=== PATIENT | female | born 1990 | race Hispanic/Latino ===

== ENCOUNTER 2017-11-01 21:42 | Emergency (ER) | payer MEDICAID, OTHER ==
[~2017-11-01 21:42] MED LIST: CEFU500T67 PO; IBUP-2070 PO
[2017-11-01 22:41] LABS: BASOPHILS % (AUTO) 0.5 % (0.0-5.0); EOSINOPHILS % (AUTO) 0.4 % (0.0-8.0); HEMATOCRIT 39.2 % (36-48); LYMPHOCYTES % (AUTO) 12.6 % (21.0-51.0); MEAN CORPUSCULAR HEMOGLOBIN 29.5 pg (27.0-33.0); MEAN CORPUSCULAR HGB CONC 33.5 g/dL (32.0-36.0); MONOCYTES % (AUTO) 5.8 % (3.0-13.0); NEUTROPHILS % (AUTO) 80.7 % (40.0-77.0); PLATELET COUNT (AUTO) 326 K/uL (130-400); RED BLOOD CELL COUNT(AUTO) 4.46 MIL/uL (4.00-5.50); RED CELL DISTRIBUTION WIDTH 14.7 % (11.0-15.5); WHITE BLOOD COUNT (AUTO) 14.5 K/uL (4.8-10.8)
[2017-11-01 22:56] LABS: CREATININE 0.9 mg/dL (0.5-1.5); POTASSIUM 3.6 mmol/L (3.5-5.1)
[2017-11-01 22:58] LABS: APPEARANCE,URINE Cloudy (CLEAR); BILIRUBIN,URINE Negative (NEGATIVE); COLOR,URINE Yellow (YELLOW); GLUCOSE, URINE (UA) Negative (NEGATIVE); KETONES,URINE Negative (NEGATIVE); LEUKOCYTE ESTERASE ,URINE Large (NEGATIVE); NITRATE,URINE Negative (NEGATIVE); OCCULT BLOOD,URINE Small (NEGATIVE); PROTEIN,URINE Negative (NEGATIVE)
[2017-11-01 23:22] LABS: BACTERIA,URINE Moderate /HPF (None Seen); MUCUS,URINE Rare LPF (None Seen); RBC,URINE 0-1 /HPF (0-1); SQUAMOUS EPITHELIAL CELL,UR Few /LPF (0-2)
== END 2017-11-01 23:56 | disposition home or self-care (01) ==
LOC: EDH 21:42
DX: O02.1 Missed abortion (principal); O03.88 Urinary tract infection following complete or unspecified spontaneous abortion; Z3A.10 10 weeks gestation of pregnancy
CPT/HCPCS: 36415; 76817; 80048; 81001; 84702; 85025; 86900; 86901

== ENCOUNTER 2017-11-04 17:05 | Emergency (ER) | payer MEDICAID | END 2017-11-04 17:56 | disposition home or self-care (01) | LOC: EDH 17:05 | DX: O20.0 Threatened abortion (principal); Z3A.11 11 weeks gestation of pregnancy | CPT/HCPCS: 99281 ==

== ENCOUNTER 2017-12-26 01:53 | Emergency (ER) | payer MEDICAID ==
[2017-12-26] MEDS ORDERED: SODIUM CHLORIDE 0.9% 1000ML 2,000 ML IV ONE (02:16)
[2017-12-26] MEDS ORDERED: CEFTRIAXONE SODIUM 1 GM ONE (02:37)
[2017-12-26 02:40] LABS: BASOPHILS % (AUTO) 0.4 % (0.0-5.0); EOSINOPHILS % (AUTO) 0.4 % (0.0-8.0); HEMATOCRIT 34.5 % (36-48); LYMPHOCYTES % (AUTO) 15.1 % (21.0-51.0); MEAN CORPUSCULAR HEMOGLOBIN 29.6 pg (27.0-33.0); MEAN CORPUSCULAR HGB CONC 33.2 g/dL (32.0-36.0); MEAN CORPUSCULAR VOLUME 88.9 fL (79-99); MONOCYTES % (AUTO) 10.6 % (3.0-13.0); NEUTROPHILS % (AUTO) 73.5 % (40.0-77.0); PLATELET COUNT (AUTO) 300 K/uL (130-400); RED BLOOD CELL COUNT(AUTO) 3.88 MIL/uL (4.00-5.50); RED CELL DISTRIBUTION WIDTH 13.6 % (11.0-15.5); WHITE BLOOD COUNT (AUTO) 13.8 K/uL (4.8-10.8)
[2017-12-26 02:42] LABS: APPEARANCE,URINE Clear (CLEAR); BILIRUBIN,URINE Negative (NEGATIVE); COLOR,URINE Yellow (YELLOW); GLUCOSE, URINE (UA) Negative (NEGATIVE); KETONES,URINE Negative (NEGATIVE); LEUKOCYTE ESTERASE ,URINE Large (NEGATIVE); NITRATE,URINE Negative (NEGATIVE); OCCULT BLOOD,URINE Small (NEGATIVE); PROTEIN,URINE Negative (NEGATIVE); UROBILINOGEN,URINE 0.2 mg/dL (0.2-1.0)
[2017-12-26 02:46] LABS: CARBON DIOXIDE 28 mmol/L (21-32); CHLORIDE 101 mmol/L (101-111); CREATININE 0.9 mg/dL (0.5-1.5); GLOMERULAR FILTR. RATE CALC 80 mL/min (>60); GLUCOSE,RANDOM 129 mg/dL (70-105); POTASSIUM 3.4 mmol/L (3.5-5.1); SODIUM SERUM 140 mmol/L (136-145); UREA NITROGEN, BLOOD 9 mg/dL (7-18)
[2017-12-26 02:47] LABS: HCG,QUAL RESULT NEGATIVE (NEGATIVE)
[2017-12-26 02:49] LABS: INR 0.94 (0.85-1.15); PROTHROMBIN TIME 9.9 SEC (9.6-11.6)
[2017-12-26 03:02] LABS: BACTERIA,URINE Few /HPF (None Seen); MUCUS,URINE Few LPF (None Seen); SQUAMOUS EPITHELIAL CELL,UR Few /HPF (0-2)
[2017-12-26 03:09] LABS: ALANINE AMINOTRANSFERASE 22 U/L (12-78); ALBUMIN 4.2 g/dL (3.5-5.0); ASPARTATE AMINOTRANSFERASE 18 U/L (10-37); BILIRUBIN,TOTAL 0.5 mg/dL (0.2-1.0); CREATINE KINASE MB < 0.5 ng/mL (0.5-3.6); CREATINE KINASE, TOTAL 65 U/L (21-232); MYOGLOBIN 33 ng/mL (10-92); TOTAL PROTEIN, SERUM 8.8 g/dL (6.0-8.3); TROPONIN I < 0.04 ng/mL (0.00-0.06)
[2017-12-26] MEDS ORDERED: SODIUM CHLORIDE 0.9% 1000ML 1,000 ML IV ONE (05:11)
[2017-12-26] MEDS ORDERED: IBUPROFEN 600 MG TABLET ONE (05:11)
== END 2017-12-26 06:21 | disposition home or self-care (01) ==
LOC: EDH 01:53
DX: N10 Acute pyelonephritis (principal); N20.0 Calculus of kidney; R79.1 Abnormal coagulation profile; Z87.442 Personal history of urinary calculi
CPT/HCPCS: 36415; 71045; 74176; 80053; 81001; 81025; 82550; 82553; 83605 ×2; 83874; 84484; 85025; 85610; 85730; 87040 ×2; 87088; 87186; 93005; 96361; 96374; 99285; J0696; J7030 ×2

== ENCOUNTER 2018-09-06 09:37 | Emergency (ER) | payer MEDICAID ==
[2018-09-06 10:13] LABS: APPEARANCE,URINE Clear (CLEAR); BILIRUBIN,URINE Negative (NEGATIVE); COLOR,URINE Yellow (YELLOW); GLUCOSE, URINE (UA) Negative (NEGATIVE); KETONES,URINE Negative (NEGATIVE); LEUKOCYTE ESTERASE ,URINE Moderate (NEGATIVE); NITRATE,URINE Negative (NEGATIVE); OCCULT BLOOD,URINE Moderate (NEGATIVE); PROTEIN,URINE Negative (NEGATIVE); UROBILINOGEN,URINE 0.2 mg/dL (0.2-1.0)
[2018-09-06 10:27] LABS: BACTERIA,URINE Rare /HPF (None Seen); RBC,URINE 0-1 /HPF (0-1); SQUAMOUS EPITHELIAL CELL,UR Rare /HPF (0-2)
== END 2018-09-06 10:35 | disposition home or self-care (01) ==
LOC: EDH 09:37
DX: R07.89 Other chest pain (principal); F41.1 Generalized anxiety disorder; Z87.442 Personal history of urinary calculi
CPT/HCPCS: 81001; 81025; 87088

== ENCOUNTER 2018-09-28 07:00 | Day surgery (SDC) | payer MEDICAID ==
[2018-09-25 10:20] LABS: BASOPHILS % (AUTO) 0.5 % (0.0-5.0); HEMATOCRIT 37.8 % (36-48); LYMPHOCYTES % (AUTO) 39.4 % (21.0-51.0); MEAN CORPUSCULAR HEMOGLOBIN 30.6 pg (27.0-33.0); MEAN CORPUSCULAR HGB CONC 33.6 g/dL (32.0-36.0); MONOCYTES % (AUTO) 6.7 % (3.0-13.0); NEUTROPHILS % (AUTO) 51.4 % (40.0-77.0); PLATELET COUNT (AUTO) 312 K/uL (130-400); RED BLOOD CELL COUNT(AUTO) 4.16 MIL/uL (4.00-5.50); RED CELL DISTRIBUTION WIDTH 14.5 % (11.0-15.5); WHITE BLOOD COUNT (AUTO) 9.5 K/uL (4.8-10.8)
[2018-09-25 10:30] VITALS: BP 125/73
[2018-09-25 10:44] LABS: CREATININE 0.8 mg/dL (0.5-1.5); POTASSIUM 3.9 mmol/L (3.5-5.1)
[2018-09-25 11:03] LABS: APPEARANCE,URINE Clear (CLEAR); BILIRUBIN,URINE Negative (NEGATIVE); COLOR,URINE Yellow (YELLOW); GLUCOSE, URINE (UA) Negative (NEGATIVE); KETONES,URINE Negative (NEGATIVE); LEUKOCYTE ESTERASE ,URINE Moderate (NEGATIVE); NITRATE,URINE Negative (NEGATIVE); OCCULT BLOOD,URINE Trace (NEGATIVE); PH,URINE 6.5 (5.0-8.0); PROTEIN,URINE Negative (NEGATIVE); UROBILINOGEN,URINE 0.2 mg/dL (0.2-1.0)
[2018-09-25 11:12] LABS: BACTERIA,URINE Rare /HPF (None Seen); RBC,URINE 0-1 /HPF (0-1); SQUAMOUS EPITHELIAL CELL,UR Rare /HPF (0-2)
[2018-09-28] VITALS (15 sets, daily range): BP systolic 110–141; BP diastolic 68–91
[~2018-09-28] VITALS: Ht 160 cm; Wt 63.1 kg
[~2018-09-28 07:00] MED LIST changes: +ACET-2247 PO; +BUSP7.5T7 PO; -CEFU500T67 PO; +PREN-154 PO; +SULF1TAB41 PO
[2018-09-28] MEDS ORDERED: LACTATED RINGERS 1000ML 1,000 ML IV ONE (07:47)
[2018-09-28] MEDS ORDERED: IOHEXOL-350 50ML VIAL IV ONE (07:53)
[2018-09-28] MEDS: MEROPENEM 1 GM VIAL IVP SCH ×2 (08:00→08:30)
[2018-09-28] MEDS ORDERED: FENTANYL CITRATE PF 50 MCG/1 ML 2ML VIAL ONE ×2 (08:05→09:30)
[2018-09-28] MEDS ORDERED: PROPOFOL 10 MG/ML 20ML VIAL IV ONE (08:05)
[2018-09-28] MEDS ORDERED: LIDOCAINE PF 2% 5ML ABBOJECT ONE (08:05)
[2018-09-28] MEDS ORDERED: MIDAZOLAM HCL 1 MG/ML 2ML VIAL ONE (08:28)
[2018-09-28] MEDS ORDERED: PHENYLEPHRINE HCL 10 MG/ML 1ML VIAL IV ONE (08:48)
[2018-09-28] MEDS ORDERED: SODIUM CHLORIDE 0.9% 10 ML VIAL ONE (08:48)
[2018-09-28] MEDS ORDERED: ONDANSETRON HCL 4 MG/2 ML VIAL ONE ×2 (10:02→11:44)
[2018-09-28] MEDS ORDERED: ACETAMINOPHEN 325 MG TAB ONE (12:25)
== END 2018-09-28 12:50 | disposition home or self-care (01) ==
LOC: DAH 07:00
PROVIDERS: ATTEND Urology
DX: N20.1 Calculus of ureter (principal); Z98.890 Other specified postprocedural states; Z79.899 Other long term (current) drug therapy; F41.9 Anxiety disorder, unspecified; K21.9 Gastro-esophageal reflux disease without esophagitis; N39.0 Urinary tract infection, site not specified
CPT/HCPCS: 36415; 52356; 74420; 80048; 81001; 84702; 85025; 87088; A4218; A4344; A4354; A4358; A4600; A4649 ×2; A6207; C1758; C1769; C1894; C2617; J2001; J2185; J2250; J2370; J2405 ×2; J2704; J3010 ×2; J7120 ×2; Q9967

== ENCOUNTER 2019-01-07 12:59 | Emergency (ER) | payer MEDICAID ==
[2019-01-07 13:22] LABS: APPEARANCE,URINE Clear (CLEAR); BILIRUBIN,URINE Negative (NEGATIVE); COLOR,URINE Yellow (YELLOW); GLUCOSE, URINE (UA) Negative (NEGATIVE); KETONES,URINE Negative (NEGATIVE); LEUKOCYTE ESTERASE ,URINE Large (NEGATIVE); NITRATE,URINE Positive (NEGATIVE); OCCULT BLOOD,URINE Trace (NEGATIVE); PROTEIN,URINE Negative (NEGATIVE); UROBILINOGEN,URINE 0.2 mg/dL (0.2-1.0)
[2019-01-07 13:37] LABS: HCG,QUAL RESULT POSITIVE (NEGATIVE)
[2019-01-07 13:50] LABS: BACTERIA,URINE Many /HPF (None Seen)
[2019-01-07 13:52] LABS: RBC,URINE 0-1 /HPF (0-1)
[2019-01-07] MEDS ORDERED: NITROFURANTOIN MONOHYD/M-CRYST 100 MG CAPSULE PO ONE (14:30)
== END 2019-01-07 14:45 | disposition home or self-care (01) ==
LOC: EDH 12:59
DX: O23.31 Infections of other parts of urinary tract in pregnancy, first trimester (principal); F41.9 Anxiety disorder, unspecified; Z98.890 Other specified postprocedural states; Z87.442 Personal history of urinary calculi; Z3A.01 Less than 8 weeks gestation of pregnancy
CPT/HCPCS: 81001; 81025; 87077; 87088; 87186

== ENCOUNTER → 2020-07-25 | Outpatient (CLI) | payer MEDICAID | END | disposition home or self-care (01) | LOC: RAH 13:25 | PROVIDERS: ATTEND Family Medicine | DX: N20.0 Calculus of kidney (principal) | CPT/HCPCS: 74176 ==

== ENCOUNTER 2021-03-24 22:36 | Emergency (ER) | payer MEDICAID ==
[~2021-03-24] VITALS: Ht 160 cm; Wt 68.0 kg
[~2021-03-24 22:36] MED LIST changes: +0.9%NACL 1000ML 1,000 ML IV ONE
[2021-03-24 22:43] VITALS: BP 126/84
[2021-03-24] MEDS ORDERED: KETOROLAC 30MG VIAL (30MG/ML) IV ONE (23:15)
[2021-03-24] MEDS ORDERED: TAMSULOSIN HCL 0.4 MG CAP.ER.24H PO SCH (23:15)
[2021-03-24] MEDS ORDERED: 0.9%NACL 1000ML 1,000 ML IV ONE (23:15)
[2021-03-24 23:26] LABS: BASOPHILS % (AUTO) 0.3 % (0.0-5.0); EOSINOPHILS % (AUTO) 0.3 % (0.0-8.0); HEMATOCRIT 36.9 % (36-48); LYMPHOCYTES % (AUTO) 19.2 % (21.0-51.0); MEAN CORPUSCULAR HEMOGLOBIN 29.8 pg (27.0-33.0); MEAN CORPUSCULAR HGB CONC 32.5 g/dL (32.0-36.0); MEAN CORPUSCULAR VOLUME 91.6 fL (79-99); MONOCYTES % (AUTO) 16.1 % (3.0-13.0); NEUTROPHILS % (AUTO) 63.7 % (40.0-77.0); PLATELET COUNT (AUTO) 284 K/uL (130-400); RED BLOOD CELL COUNT(AUTO) 4.03 MIL/uL (4.00-5.50); RED CELL DISTRIBUTION WIDTH 12.4 % (11.0-15.5); WHITE BLOOD COUNT (AUTO) 14.3 K/uL (4.8-10.8)
[2021-03-24 23:28] LABS: APPEARANCE,URINE Clear (CLEAR); BILIRUBIN,URINE Negative (NEGATIVE); COLOR,URINE Yellow (YELLOW); GLUCOSE, URINE (UA) Negative (NEGATIVE); KETONES,URINE Negative (NEGATIVE); LEUKOCYTE ESTERASE ,URINE Moderate (NEGATIVE); NITRATE,URINE Negative (NEGATIVE); OCCULT BLOOD,URINE Small (NEGATIVE); PROTEIN,URINE Negative (NEGATIVE)
[2021-03-24 23:35] LABS: HCG,QUAL RESULT NEGATIVE (NEGATIVE)
[2021-03-24 23:39] LABS: CREATININE 1.1 mg/dL (0.5-1.5); POTASSIUM 3.6 mmol/L (3.5-5.1)
[2021-03-24 23:45] LABS: ALBUMIN 3.9 g/dL (3.5-5.0); BILIRUBIN,TOTAL 0.6 mg/dL (0.2-1.0); TOTAL PROTEIN, SERUM 8.7 g/dL (6.0-8.3)
[2021-03-24 23:47] LABS: BACTERIA,URINE Rare /HPF (None Seen); RBC,URINE 0-1 /HPF (0-1)
[2021-03-24 23:57] LABS: CRP QUANTITATIVE 174.4 mg/L (0.00-9.0)
[2021-03-25] MEDS ORDERED: CEFTRIAXONE 2GM VIAL IVP SCH (00:30)
[2021-03-25 00:47] VITALS: BP 133/73
[2021-03-25] MEDS ORDERED: ONDA4TAB10 PO (00:48)
[2021-03-25] MEDS ORDERED: CEPH500B PO (00:48)
[2021-03-25] MEDS ORDERED: MELO7.5T12 PO (00:48)
[2021-03-25] MEDS ORDERED: METO-296 PO (00:48)
[2021-03-25] MEDS ORDERED: ONDANSETRON 4MG INJ IVP ONE (01:00)
[2021-03-25] MEDS ORDERED: ACETAMINOPHEN 500 MG TABLET PO ONE (01:00)
[2021-03-25] MEDS ORDERED: KETOROLAC 30MG VIAL (30MG/ML) ONE (01:13)
== END 2021-03-25 01:29 | disposition home or self-care (01) ==
LOC: EDH 22:36
DX: N12 Tubulo-interstitial nephritis, not specified as acute or chronic (principal); E86.0 Dehydration; K21.9 Gastro-esophageal reflux disease without esophagitis; Z79.899 Other long term (current) drug therapy
CPT/HCPCS: 36415 ×2; 74176; 80053; 81001; 81025; 83605; 85025; 86140; 87040 ×2; 87077; 87088; 87186; 96361; 96374; 96375; 99284; J0696; J1885; J2405; J7030

== ENCOUNTER 2021-07-14 00:45 | Emergency (ER) | payer MEDICAID ==
[~2021-07-14] VITALS: Ht 160 cm; Wt 69.4 kg
[~2021-07-14 00:45] MED LIST changes: -0.9%NACL 1000ML 1,000 ML IV ONE; +CEPH500B PO; +MELO7.5T12 PO; +METO-296 PO; +ONDA4TAB10 PO
[2021-07-14 01:52] LABS: APPEARANCE,URINE Cloudy (CLEAR); BILIRUBIN,URINE Negative (NEGATIVE); COLOR,URINE Yellow (YELLOW); GLUCOSE, URINE (UA) Negative (NEGATIVE); KETONES,URINE Negative (NEGATIVE); LEUKOCYTE ESTERASE ,URINE Large (NEGATIVE); NITRATE,URINE Negative (NEGATIVE); OCCULT BLOOD,URINE Large (NEGATIVE); PH,URINE 6.5 (5.0-8.0); PROTEIN,URINE Trace mg/dL (NEGATIVE)
[2021-07-14 01:59] LABS: BACTERIA,URINE Rare /HPF (None Seen); SQUAMOUS EPITHELIAL CELL,UR Rare /HPF (0-2)
[2021-07-14 02:00] LABS: HCG,QUAL RESULT NEGATIVE (NEGATIVE)
[2021-07-14] MEDS ORDERED: ZOSYN 3.375GM+NS 50ML 50 ML IV ONE (02:30)
[2021-07-14 02:52] LABS: BASOPHILS % (AUTO) 0.4 % (0.0-5.0); EOSINOPHILS % (AUTO) 0.6 % (0.0-8.0); HEMATOCRIT 38.8 % (36-48); LYMPHOCYTES % (AUTO) 13.7 % (21.0-51.0); MEAN CORPUSCULAR HEMOGLOBIN 30.7 pg (27.0-33.0); MEAN CORPUSCULAR HGB CONC 33.2 g/dL (32.0-36.0); MEAN CORPUSCULAR VOLUME 92.4 fL (79-99); MONOCYTES % (AUTO) 7.9 % (3.0-13.0); PLATELET COUNT (AUTO) 295 K/uL (130-400); RED CELL DISTRIBUTION WIDTH 13.3 % (11.0-15.5); WHITE BLOOD COUNT (AUTO) 15.9 K/uL (4.8-10.8)
[2021-07-14 03:18] LABS: CREATININE 1.2 mg/dL (0.5-1.5); POTASSIUM 3.3 mmol/L (3.5-5.1)
[2021-07-14] MEDS ORDERED: NITR100C4 PO (05:42)
[2021-07-14 05:56] VITALS: BP 123/84
== END 2021-07-14 05:57 | disposition home or self-care (01) ==
LOC: EDH 00:45
DX: N39.0 Urinary tract infection, site not specified (principal); N20.0 Calculus of kidney; B96.89 Other specified bacterial agents as the cause of diseases classified elsewhere; F41.9 Anxiety disorder, unspecified; Z98.890 Other specified postprocedural states; Z79.899 Other long term (current) drug therapy
CPT/HCPCS: 36415; 76770; 80048; 81001; 81025; 85025; 87040 ×2; 87077; 87088; 87186; 96365; 99284; J2543

== ENCOUNTER 2021-08-02 14:31 | Inpatient (IN) | payer MEDICAID ==
[~2021-08-02] VITALS: Ht 160 cm; Wt 66.3 kg
[~2021-08-02 14:31] MED LIST changes: +NITR100C4 PO
[2021-08-02] MEDS ORDERED: 0.9%NACL 1000ML 1,572 ML IV ONE (15:00)
[2021-08-02] MEDS ORDERED: ACETAMINOPHEN 500 MG TABLET ONE (15:08)
[2021-08-02] MEDS ORDERED: ONDANSETRON 4MG INJ ONE (15:08)
[2021-08-02 15:12] LABS: BASOPHILS % (AUTO) 0.2 % (0.0-5.0); EOSINOPHILS % (AUTO) 0.1 % (0.0-8.0); HEMATOCRIT 38.7 % (36-48); LYMPHOCYTES % (AUTO) 9.1 % (21.0-51.0); MEAN CORPUSCULAR HEMOGLOBIN 30.4 pg (27.0-33.0); MEAN CORPUSCULAR HGB CONC 33.1 g/dL (32.0-36.0); MEAN CORPUSCULAR VOLUME 91.9 fL (79-99); MONOCYTES % (AUTO) 9.1 % (3.0-13.0); PLATELET COUNT (AUTO) 265 K/uL (130-400); RED BLOOD CELL COUNT(AUTO) 4.21 MIL/uL (4.00-5.50); RED CELL DISTRIBUTION WIDTH 13.2 % (11.0-15.5); WHITE BLOOD COUNT (AUTO) 19.4 K/uL (4.8-10.8)
[2021-08-02 15:23] LABS: INR 1.06 (0.85-1.15); PROTHROMBIN TIME 11.5 SEC (9.6-11.6)
[2021-08-02 15:24] LABS: PARTIAL THROMBOPLASTIN TIME 24.8 SEC (26.3-35.5)
[2021-08-02 15:28] LABS: CREATININE 1.3 mg/dL (0.5-1.5); POTASSIUM 3.6 mmol/L (3.5-5.1)
[2021-08-02 15:32] LABS: APPEARANCE,URINE CLOUDY (CLEAR); BILIRUBIN,URINE NEGATIVE (NEGATIVE); COLOR,URINE YELLOW (YELLOW); GLUCOSE, URINE (UA) NEGATIVE (NEGATIVE); KETONES,URINE NEGATIVE (NEGATIVE); LEUKOCYTE ESTERASE ,URINE LARGE (NEGATIVE); NITRATE,URINE POSITIVE (NEGATIVE); OCCULT BLOOD,URINE MODERATE (NEGATIVE); PROTEIN,URINE 100 mg/dL (NEGATIVE)
[2021-08-02 15:33] LABS: ALBUMIN 4.3 g/dL (3.5-5.0); TOTAL PROTEIN, SERUM 8.9 g/dL (6.0-8.3)
[2021-08-02 15:45] LABS: WBC,URINE 26-50 /HPF (0-1)
[2021-08-02 15:46] LABS: BACTERIA,URINE Few /HPF (None Seen); SQUAMOUS EPITHELIAL CELL,UR Few /HPF (0-2)
[2021-08-02 15:48] LABS: MUCUS,URINE Rare LPF (None Seen)
[2021-08-02] MEDS ORDERED: ZOSYN 3.375GM +NS 50ML IV ONE (16:00)
[2021-08-02] MEDS ORDERED: 0.9%NACL 50ML 50 ML IV ONE (16:00)
[2021-08-02] MEDS ORDERED: ONDANSETRON 4MG INJ IVP ONE (16:00)
[2021-08-02] MEDS ORDERED: ACETAMINOPHEN 500 MG TABLET PO ONE (16:00)
[2021-08-02] MEDS ORDERED: MORPHINE 2 MG SYG IV PRN (17:30)
[2021-08-02 17:55] LABS: HEMOGLOBIN A1C 5.9 % (4.0-6.0)
[2021-08-02 18:35] VITALS: BP 119/86
[2021-08-02] MEDS: 0.9%NACL 1000ML 1,000 ML IV SCH (19:00)
[2021-08-02] MEDS: ACETAMINOPHEN 325 MG TAB PO PRN ×2 (19:15→21:18)
[2021-08-02] MEDS: ZOSYN 3.375GM+NS 50ML 50 ML IV SCH (21:16)
[2021-08-02] MEDS: 0.9%NACL 50ML 50 ML IV SCH (21:16)
[2021-08-02] MEDS: FAMOTIDINE 20MG VIAL IV SCH (21:16)
[2021-08-02] MEDS: ONDANSETRON 4MG INJ IV PRN (21:39)
[2021-08-02 22:27] LABS: AMPHET/METH SCREEN,URINE NEGATIVE (NEGATIVE); BARBITURATE SCREEN, URINE NEGATIVE (NEGATIVE); BENZODIAZEPINES SCREEN,URINE NEGATIVE (NEGATIVE); CANNABINOID SCREEN,URINE NEGATIVE (NEGATIVE); COCAINE SCREEN,URINE NEGATIVE (NEGATIVE); OPIATE SCREEN,URINE NEGATIVE (NEGATIVE); PHENCYCLIDINE SCREEN,URINE NEGATIVE (NEGATIVE)
[2021-08-02 23:59] VITALS: BP 104/65
[2021-08-03] MEDS: 0.9%NACL 1000ML 1,000 ML IV SCH ×3 (01:14→18:06)
[2021-08-03] MEDS ORDERED: IBUPROFEN 800 MG TAB PO ONE (01:30)
[2021-08-03] MEDS ORDERED: ALPRAZOLAM 0.25 MG TABLET PO ONE (01:30)
[2021-08-03 03:49] VITALS: BP 102/67
[2021-08-03 03:50] LABS: BASOPHILS % (AUTO) 0.2 % (0.0-5.0); EOSINOPHILS % (AUTO) 0.7 % (0.0-8.0); HEMATOCRIT 32.7 % (36-48); MEAN CORPUSCULAR HGB CONC 33.3 g/dL (32.0-36.0); MEAN CORPUSCULAR VOLUME 92.9 fL (79-99); MONOCYTES % (AUTO) 10.9 % (3.0-13.0); NEUTROPHILS % (AUTO) 83.1 % (40.0-77.0); PLATELET COUNT (AUTO) 192 K/uL (130-400); RED BLOOD CELL COUNT(AUTO) 3.52 MIL/uL (4.00-5.50); RED CELL DISTRIBUTION WIDTH 13.3 % (11.0-15.5); WHITE BLOOD COUNT (AUTO) 19.7 K/uL (4.8-10.8)
[2021-08-03] MEDS: 0.9%NACL 50ML 50 ML IV SCH ×3 (05:06→20:59)
[2021-08-03] MEDS: ZOSYN 3.375GM+NS 50ML 50 ML IV SCH ×2 (05:06→12:24)
[2021-08-03] MEDS: FAMOTIDINE 20MG VIAL IV SCH ×2 (08:02→21:12)
[2021-08-03 08:31] VITALS: BP 103/68
[2021-08-03] MEDS: ONDANSETRON 4MG INJ IV PRN ×2 (11:06→21:12)
[2021-08-03] MEDS: ACETAMINOPHEN 325 MG TAB PO PRN ×3 (11:06→21:13)
[2021-08-03 12:00] VITALS: BP 103/68
[2021-08-03] MEDS: MEROPENEM 1 GM VIAL IVP SCH ×2 (14:12→22:07)
[2021-08-03 17:15] VITALS: BP 116/82
[2021-08-03 19:34] VITALS: BP 103/69
[2021-08-03 23:37] VITALS: BP 101/65
[2021-08-04] MEDS: 0.9%NACL 1000ML 1,000 ML IV SCH ×3 (02:31→16:35)
[2021-08-04] MEDS: ACETAMINOPHEN 325 MG TAB PO PRN ×3 (02:57→21:59)
[2021-08-04 03:33] VITALS: BP 112/74
[2021-08-04 03:38] LABS: BASOPHILS % (AUTO) 0.3 % (0.0-5.0); EOSINOPHILS % (AUTO) 0.6 % (0.0-8.0); LYMPHOCYTES % (AUTO) 13.6 % (21.0-51.0); MEAN CORPUSCULAR HEMOGLOBIN 30.4 pg (27.0-33.0); MEAN CORPUSCULAR HGB CONC 32.6 g/dL (32.0-36.0); MEAN CORPUSCULAR VOLUME 93.3 fL (79-99); MONOCYTES % (AUTO) 12.6 % (3.0-13.0); NEUTROPHILS % (AUTO) 71.9 % (40.0-77.0); PLATELET COUNT (AUTO) 113 K/uL (130-400); RED BLOOD CELL COUNT(AUTO) 3.75 MIL/uL (4.00-5.50); RED CELL DISTRIBUTION WIDTH 13.4 % (11.0-15.5)
[2021-08-04 03:50] LABS: CREATININE 1.1 mg/dL (0.5-1.5); POTASSIUM 3.6 mmol/L (3.5-5.1)
[2021-08-04] MEDS: 0.9%NACL 50ML 50 ML IV SCH ×3 (04:32→20:56)
[2021-08-04] MEDS: MEROPENEM 1 GM VIAL IVP SCH ×3 (06:14→21:48)
[2021-08-04 07:05] VITALS: BP 104/72
[2021-08-04] MEDS: FAMOTIDINE 20MG VIAL IV SCH ×2 (09:09→21:48)
[2021-08-04] MEDS: ONDANSETRON 4MG INJ IV PRN (09:11)
[2021-08-04 11:05] VITALS: BP 105/72
[2021-08-04 15:05] VITALS: BP 105/72
[2021-08-04 19:41] VITALS: BP 100/68
[2021-08-04 23:20] VITALS: BP 101/69
[2021-08-05] MEDS: 0.9%NACL 1000ML 1,000 ML IV SCH ×3 (01:30→23:00)
[2021-08-05 04:11] VITALS: BP 114/76
[2021-08-05] MEDS: 0.9%NACL 50ML 50 ML IV SCH ×2 (05:00→13:00)
[2021-08-05] MEDS: MEROPENEM 1 GM VIAL IVP SCH (06:08)
[2021-08-05 08:00] VITALS: BP 118/80
[2021-08-05 10:04] LABS: HEMATOCRIT 28.8 % (36-48); MEAN CORPUSCULAR HEMOGLOBIN 30.3 pg (27.0-33.0); MEAN CORPUSCULAR HGB CONC 33.3 g/dL (32.0-36.0); MEAN CORPUSCULAR VOLUME 90.9 fL (79-99); PLATELET COUNT (AUTO) 205 K/uL (130-400); RED BLOOD CELL COUNT(AUTO) 3.17 MIL/uL (4.00-5.50); RED CELL DISTRIBUTION WIDTH 13.5 % (11.0-15.5)
[2021-08-05 10:16] LABS: POTASSIUM 3.1 mmol/L (3.5-5.1)
[2021-08-05] MEDS: FAMOTIDINE 20MG VIAL IV SCH ×2 (10:21→20:56)
[2021-08-05 10:24] LABS: BASOPHILS % (AUTO) 0.2 % (0.0-5.0); EOSINOPHILS % (AUTO) 0.3 % (0.0-8.0); LYMPHOCYTES % (AUTO) 20.4 % (21.0-51.0); MONOCYTES % (AUTO) 9.9 % (3.0-13.0); NEUTROPHILS % (AUTO) 68.4 % (40.0-77.0)
[2021-08-05] MEDS: ONDANSETRON 4MG INJ IV PRN (10:29)
[2021-08-05 12:00] VITALS: BP 115/83
[2021-08-05] MEDS ORDERED: CEFTRIAXONE 1G VIAL IVP SCH (14:00)
[2021-08-05] MEDS: DOXYCYCLINE 100MG+NS 250ML IV SCH (15:27)
[2021-08-05] MEDS: 0.9% NACL 250ML IVPB SCH (15:27)
[2021-08-05 16:00] VITALS: BP 112/77
[2021-08-05 20:00] VITALS: BP 124/81
[2021-08-05] MEDS ORDERED: KCL 20 MEQ ERTAB PO PRN (20:00)
[2021-08-05] MEDS ORDERED: POTASSIUM CHLORIDE 20MEQ/100ML 100 ML IV PRN ×2 (20:00)
[2021-08-05] MEDS ORDERED: LIDOCAINE HCL-MPF 1% 2ML VIAL IV PRN ×2 (20:00)
[2021-08-05] MEDS ORDERED: DIPHENOXYLATE HCL/ATROPINE 2.5/0.025 MG TAB PO ONE (20:40)
[2021-08-05] MEDS: POTASSIUM CHLORIDE 10% ELIXIR 20 MEQ/15 ML UDCUP PO PRN (23:06)
[2021-08-06] VITALS: BP 117/78
[2021-08-06] MEDS: ONDANSETRON 4MG INJ IV PRN (01:18)
[2021-08-06] MEDS: POTASSIUM CHLORIDE 10% ELIXIR 20 MEQ/15 ML UDCUP PO PRN ×5 (01:19→16:38)
[2021-08-06] MEDS: 0.9% NACL 250ML IVPB SCH (01:19)
[2021-08-06] MEDS: DOXYCYCLINE 100MG+NS 250ML IV SCH (01:19)
[2021-08-06] MEDS: 0.9%NACL 1000ML 1,000 ML IV SCH (01:30)
[2021-08-06 04:05] LABS: CREATININE 0.9 mg/dL (0.5-1.5); POTASSIUM 3.2 mmol/L (3.5-5.1)
[2021-08-06 08:00] VITALS: BP 116/81
[2021-08-06] MEDS: FAMOTIDINE 20MG VIAL IV SCH (08:58)
[2021-08-06] MEDS ORDERED: LOPERAMIDE HCL 2 MG CAP PO PRN (11:00)
[2021-08-06 11:21] LABS: HEMATOCRIT 31.1 % (36-48); MEAN CORPUSCULAR HGB CONC 32.2 g/dL (32.0-36.0); MEAN CORPUSCULAR VOLUME 93.4 fL (79-99); RED BLOOD CELL COUNT(AUTO) 3.33 MIL/uL (4.00-5.50); RED CELL DISTRIBUTION WIDTH 13.8 % (11.0-15.5); WHITE BLOOD COUNT (AUTO) 9.7 K/uL (4.8-10.8)
[2021-08-06 12:00] VITALS: BP 120/64
[2021-08-06] MEDS ORDERED: KCL 20 MEQ ERTAB PO ONE (16:00)
[2021-08-06] MEDS ORDERED: DOXY20TA3 PO (16:08)
== END 2021-08-06 17:00 | disposition home or self-care (01) | DRG 720 ==
LOC: EDH 14:31 → EDHIP 14:32 → 3AH 18:35
PROVIDERS: ADMIT Hospitalist; ATTEND Hospitalist
DX: A41.50 Gram-negative sepsis, unspecified (principal); N17.9 Acute kidney failure, unspecified; N13.6 Pyonephrosis; E86.1 Hypovolemia; D64.9 Anemia, unspecified; B96.20 Unspecified Escherichia coli [E. coli] as the cause of diseases classified elsewhere; E87.6 Hypokalemia; Z20.822 Contact with and (suspected) exposure to COVID-19; F41.9 Anxiety disorder, unspecified; Z87.442 Personal history of urinary calculi; Z83.3 Family history of diabetes mellitus; Z82.5 Family history of asthma and other chronic lower respiratory diseases; Z82.49 Family history of ischemic heart disease and other diseases of the circulatory system; Z82.3 Family history of stroke; Z82.0 Family history of epilepsy and other diseases of the nervous system
CPT/HCPCS: 36415; 74176; 76770; 80048; 80053; 80305; 81001; 81025; 82550; 83036; 83605; 84145; 84484; 85025; 85027; 85610; 85730; 86140; 86757; 87040; 87077; 87088; 87186; 87635; 87804; 93005; C9803; G0378; J0696; J2185; J2405; J2543; J3490; J7030; J7050

== ENCOUNTER 2023-03-27 03:23 | Emergency (ER) | payer MEDICAID ==
[~2023-03-27] VITALS: Ht 160 cm; Wt 59.1 kg
[~2023-03-27 03:23] MED LIST changes: -CEPH500B PO; -IBUP-2070 PO; -MELO7.5T12 PO; -NITR100C4 PO; -SULF1TAB41 PO; +TAMS-1 PO
[2023-03-27 04:13] LABS: APPEARANCE,URINE CLOUDY (CLEAR); BILIRUBIN,URINE NEGATIVE (NEGATIVE); COLOR,URINE COLORLESS (YELLOW); GLUCOSE, URINE (UA) NEGATIVE (NEGATIVE); KETONES,URINE NEGATIVE (NEGATIVE); LEUKOCYTE ESTERASE ,URINE 500 Leu/uL (NEGATIVE); NITRATE,URINE 1+ (NEGATIVE); OCCULT BLOOD,URINE LARGE (NEGATIVE); PH,URINE 7.5 (5.0-8.0); PROTEIN,URINE 30 mg/dL (NEGATIVE); UROBILINOGEN,URINE 0.2 mg/dL (0.2-1.0)
[2023-03-27 05:02] LABS: BACTERIA,URINE MANY /HPF (None Seen); MUCUS,URINE RARE LPF (None Seen); SQUAMOUS EPITHELIAL CELL,UR FEW /HPF (0-2); WBC,URINE TNTC /HPF (0-1)
[2023-03-27] MEDS ORDERED: CEPH500T PO (05:48)
[2023-03-27 05:53] VITALS: BP 118/76
== END 2023-03-27 05:56 | disposition home or self-care (01) ==
LOC: EDH 03:23
DX: O23.41 Unspecified infection of urinary tract in pregnancy, first trimester (principal); N39.0 Urinary tract infection, site not specified; F41.9 Anxiety disorder, unspecified; Z3A.13 13 weeks gestation of pregnancy; Z79.899 Other long term (current) drug therapy; Z87.442 Personal history of urinary calculi
CPT/HCPCS: 76801; 81001; 87077; 87088; 87186

== ENCOUNTER 2024-10-02 21:33 | Emergency (ER) | payer MEDICAID ==
[~2024-10-02] VITALS: Ht 160 cm; Wt 69.9 kg
[~2024-10-02 21:33] MED LIST changes: +CEPH500T PO; -METO-296 PO; -ONDA4TAB10 PO; -TAMS-1 PO
[2024-10-02 22:02] LABS: BASOPHILS # (AUTO) 0.04 K/uL (0.00-0.20); BASOPHILS % (AUTO) 0.2 % (0.0-5.0); EOSINOPHILS # (AUTO) 0.05 K/uL (0.00-0.70); EOSINOPHILS % (AUTO) 0.3 % (0.0-8.0); HEMATOCRIT 38.8 % (36-48); IMMATURE GRANULOCYTE ABSOLUTE 0.07 K/uL (0-1); LYMPHOCYTES # (AUTO) 1.4 K/uL (1.0-4.8); LYMPHOCYTES % (AUTO) 7.3 % (21.0-51.0); MEAN CORPUSCULAR HEMOGLOBIN 29.9 pg (27.0-33.0); MEAN CORPUSCULAR VOLUME 90.7 fL (79-99); MONOCYTES # (AUTO) 0.4 K/uL (0.1-1.0); MONOCYTES % (AUTO) 2.1 % (3.0-13.0); NEUTROPHILS # (AUTO) 16.8 K/uL (1.8-7.7); NEUTROPHILS % (AUTO) 89.7 % (40.0-77.0); PLATELET COUNT (AUTO) 292 K/uL (130-400); RED BLOOD CELL COUNT(AUTO) 4.28 MIL/uL (4.00-5.50); RED CELL DISTRIBUTION WIDTH 12.6 % (11.0-15.5); WHITE BLOOD COUNT (AUTO) 18.7 K/uL (4.8-10.8)
[2024-10-02] MEDS: ondanSETRON 4MG INJ IVP ONE (22:03)
[2024-10-02 22:04] LABS: APPEARANCE,URINE CLOUDY (CLEAR); BILIRUBIN,URINE NEGATIVE (NEGATIVE); COLOR,URINE LIGHT-YELLOW (YELLOW); GLUCOSE, URINE (UA) NEGATIVE (NEGATIVE); KETONES,URINE NEGATIVE (NEGATIVE); LEUKOCYTE ESTERASE ,URINE 500 Leu/uL (NEGATIVE); NITRATE,URINE 1+ (NEGATIVE); OCCULT BLOOD,URINE LARGE (NEGATIVE); PROTEIN,URINE 200 mg/dL (NEGATIVE); UROBILINOGEN,URINE 0.2 mg/dL (0.2-1.0)
[2024-10-02] MEDS: ketOROlac 30MG VIAL (30MG/ML) IVP ONE (22:04)
[2024-10-02 22:05] LABS: ADD UA MICROSCOPIC YES
[2024-10-02 22:09] LABS: BACTERIA,URINE RARE /HPF (None Seen); MUCUS,URINE RARE LPF (None Seen); RBC,URINE TNTC /HPF (0-1); SQUAMOUS EPITHELIAL CELL,UR RARE /HPF (0-2); WBC,URINE TNTC /HPF (0-1); YEAST,URINE BUDDING RARE /HPF (None Seen)
[2024-10-02 22:42] LABS: CREATININE 1.3 mg/dL (0.5-1.0); POTASSIUM 3.5 mmol/L (3.5-5.1)
[2024-10-02 23:07] LABS: WBC MORPHOLOGY CONSISTENT W/DIFF
--- NOTE | 2024-10-02 23:10 | HMCIMG ---
CT ABDOMEN/PELVIS W/O CONTRAST HISTORY: Renal stones COMPARISON: None TECHNIQUE: Multiple sequential axial images of the abdomen and pelvis were obtained from the dome of the diaphragm through symphysis pubis. Patient was not given contrast through intravenous route. Oral contrast was not given. FINDINGS: No pleural effusion is seen bilaterally. There are interstitial fibrosis. There is no evidence of parenchymal disease or pulmonary nodule of the visualized lower lungs. Degenerative changes of the thoracolumbar spine are present. The heart is not enlarged. Liver is enlarged with fatty changes measuring 17 cm. The liver, spleen, adrenal glands and pancreas are unremarkable. No hydronephrosis is seen on the left. There is right hydronephrosis with a primary renal stone in the right UP junction. There are bilateral renal pelvic stones with the largest on the right measuring 12 mm. Fecal material is seen in the colon. There are normal size retroperitoneal and mesenteric lymph nodes. No ascites is seen. No CT evidence of acute appendicitis is seen. Pelvic sidewalls are symmetric bilaterally. Bladder is poorly distended. IMPRESSION: 1. There is right hydronephrosis with a primary renal stone in the right UP junction. There are bilateral renal pelvic stones with the largest on the right measuring 12 mm. Fecal material is seen in the colon CT was performed with one or more following dose reduction techniques: automated exposure control, adjustment of the mA and kv according to patient's size, or use of a iterative reconstruction technique.
[2024-10-02] MEDS: [UNRECOGNIZED DRUG - OTHER] IV ONE ×2 (23:11→23:19)
[2024-10-02] MEDS: acetaMINOPHEN 500 MG TABLET PO ONE (23:11)
[2024-10-02] MEDS: cefTRIAXone 1G VIAL IVPB ONE (23:11)
--- NOTE | 2024-10-02 23:13 | NUR ---
PATIENT SPIKED TEMPERATURE AND IS NOW TACHYCARDIC; ED MD MADE AWARE; CODE SEPSIS INITIATED
[2024-10-02] MEDS: acetaMINOPHEN 500 MG TABLET ONE (23:19)
[2024-10-02 23:58] LABS: CARBON DIOXIDE 20 mmol/L (21-32); CHLORIDE 100 mmol/L (101-111); CREATININE 1.6 mg/dL (0.5-1.0); GLOMERULAR FILTR. RATE CALC 43 mL/min (>90); GLUCOSE,RANDOM 118 mg/dL (70-105); POTASSIUM 3.5 mmol/L (3.5-5.1); SODIUM SERUM 136 mmol/L (136-145); UREA NITROGEN, BLOOD 12 mg/dL (7-18)
[2024-10-03 00:07] LABS: CREATINE KINASE, TOTAL 98 U/L (21-232)
--- NOTE | 2024-10-03 00:21 | NUR ---
TRANSFER CALL PLACED TO [facility] [employer]EV[employer]ING SUPERVISOR TO INITIATE TRANSFER FOR UROLOGY SERVICES.
[2024-10-03] MEDS: ondanSETRON 4MG INJ IVP ONE (00:28)
[2024-10-03] MEDS: morPHINE 4 MG SYG IVP ONE (00:28)
--- NOTE | 2024-10-03 00:41 | NUR ---
TRANSFER UPDATE PLACED CALL TO [facility] [employer] CL[employer] TO INFORM THEM OF PATIENT'S ELEVATED TEMP AND TACHYCARDIAC RHYTHM
[2024-10-03 01:29] VITALS: TEMP 98.8
--- NOTE | 2024-10-03 01:30 | NUR ---
TRANSFER PT. WAS ACCEPTED BY RODRIGO GUZMAN MD FOR TRANSFER TO [facility] [place] [facility] ER. REPORT: [phone]
[2024-10-03 01:31] VITALS: TEMP 98.8
--- NOTE | 2024-10-03 01:45 | NUR ---
[facility] CALLED FOR TRANSPORT OF MONITORED PT.
[2024-10-03 02:00] VITALS: BP 101/57; PULSE 116; RESP 18; O2SAT 94
--- NOTE | 2024-10-03 02:09 | NUR ---
[facility]S ARRIVED FOR PT AT THIS TIME
--- NOTE | 2024-10-03 02:11 | NUR ---
[facility] LEFT WITH PT AR THIS TIME. PENDING ARRIVAL TO [facility]
--- NOTE | 2024-10-03 02:17 | NUR ---
REPORT GIVEN TO ROSA WHITEHEAD AT [facility] [place] LINDSAY KIM AT THIS TIME
--- NOTE | 2024-10-03 02:21 | ERN ---
ED Note History of Present Illness Stated Complaint: C/O RT FLANK PAIN W/ BURNING WHEN VOIDING Chief Complaint: Flank Pain Time Seen by MD: 21:46 Allergies: Coded Allergies: No Known Drug Allergies (Verified Allergy, Unknown, 07/13/14) Home Meds Active Scripts Cephalexin (Cephalexin) 500 Mg Tablet, 500 MG PO QID, #28 TAB Prov:CARLEYTRACYALEJANDRA MD 03/27/23 Reported Medications Vits #93/Iron Fum/FA ( Formula Tablet) 1 Each Tablet, 1 EACH PO DAILY, TAB 09/25/18 Buspirone HCl (Buspirone HCl) 7.5 Mg Tablet, 7.5 MG PO DAILY, TAB 09/25/18 Acetaminophen (Tylenol) 325 Mg Tablet, 325 MG PO Q4HPRN, TAB 09/25/18 Past Medical History Dictation 34-year-old female past medical history of kidney stones presents with fevers, nausea, vomiting, right flank pain and dysuria patient denies C chest pain, shortness breath focal neurological deficits Past Medical History: Anxiety, Other Additional Past Medical Hx: HX OF KIDNEY STONES Surgical History: Surgical History Other: KIDNEY STENTS Family History: Negative Social History: Negative LMP: Aug 28, 2024 Review of System Dictation See HPI Initial Vital Sign VS Vital Signs Date Time Temp Pulse Resp B/P (MAP) Pulse Ox O2 Delivery O2 Flow Rate FiO2 10/02/24 21:35 99.5 110 20 124/87 100 Room Air 10/02/24 21:57 0 21 Physical Exam Dictation Acutely weak appearing, q.o.d. hearing, red CVA tenderness, elevated BMI, febrile Results (Laboratory/Radiology) Laboratory/Radiology Laboratory Tests Test 10/02/24 21:37 10/02/24 21:55 10/02/24 22:32 10/02/24 23:26 Urine Color LIGHT-YELLOW (YELLOW) Urine Appearance CLOUDY (CLEAR) H Urine pH 6.0 (5.0-8.0) Urine Specific [place] 1.019 (1.001-1.031) Urine Protein 200 mg/dL (NEGATIVE) H Urine Glucose (UA) NEGATIVE mg/dL (NEGATIVE) Urine Ketones NEGATIVE mg/dL (NEGATIVE) Urine Occult Blood LARGE (NEGATIVE) H Urine Nitrate 1+ (NEGATIVE) H Urine Bilirubin NEGATIVE mg/dL (NEGATIVE) Urine Urobilinogen 0.2 mg/dL (0.2-1.0) Urine Leukocyte Esterase 500 Sharla/uL (NEGATIVE) H Urine RBC TNTC /HPF (0-1) H Urine WBC TNTC /HPF (0-1) H Urine Squamous Epithelial Cells RARE /HPF (0-2) Urine Bacteria RARE /HPF (None Seen) Urine Yeast RARE /HPF (None Seen) White Blood Count 18.7 K/uL (4.8-10.8) H Red Blood Count 4.28 MIL/uL (4.00-5.50) Hemoglobin 12.8 g/dL (12.0-16.0) Hematocrit 38.8 % (36-48) Mean Corpuscular Volume 90.7 fL (79-99) Mean Corpuscular Hemoglobin 29.9 pg (27.0-33.0) Mean Corpuscular Hemoglobin Concent 33.0 g/dL (32.0-36.0) Red Cell Distribution Width 12.6 % (11.0-15.5) Platelet Count 292 K/uL (130-400) Mean Platelet Volume 9.7 fL (7.5-10.5) Immature Granulocyte % (Auto) 0.4 % (0-1) Neutrophils (%) (Auto) 89.7 % (40.0-77.0) H Lymphocytes (%) (Auto) 7.3 % (21.0-51.0) L Monocytes (%) (Auto) 2.1 % (3.0-13.0) L Eosinophils (%) (Auto) 0.3 % (0.0-8.0) Basophils (%) (Auto) 0.2 % (0.0-5.0) Neutrophils # (Auto) 16.8 K/uL (1.8-7.7) H Lymphocytes # (Auto) 1.4 K/uL (1.0-4.8) Monocytes # (Auto) 0.4 K/uL (0.1-1.0) Eosinophils # (Auto) 0.05 K/uL (0.00-0.70) Basophils # (Auto) 0.04 K/uL (0.00-0.20) Absolute Immature Granulocyte (auto 0.07 K/uL (0-1) Nucleated Red Blood Cells 0.0 % (0.0-0.19) White Cell Morphology Comment CONSISTENT W/DIFF Serum Test, Qualitative NEGATIVE (NEGATIVE) Sodium Level 137 mmol/L (136-145) 136 mmol/L (136-145) Potassium Level 3.5 mmol/L (3.5-5.1) 3.5 mmol/L (3.5-5.1) Chloride Level 104 mmol/L (101-111) 100 mmol/L (101-111) L Carbon Dioxide Level 24 mmol/L (21-32) 20 mmol/L (21-32) L Blood Urea Nitrogen 12 mg/dL (7-18) 12 mg/dL (7-18) Creatinine 1.3 mg/dL (0.5-1.0) H 1.6 mg/dL (0.5-1.0) H Glomerular Filtration Rate Calc 55 mL/min (>90) 43 mL/min (>90) Random Glucose 124 mg/dL (70-105) H 118 mg/dL (70-105) H Total Calcium 8.4 mg/dL (8.5-10.1) L 8.9 mg/dL (8.5-10.1) Lactic Acid Level 7.1 mmol/L (0.8-2.5) H Total Creatine Kinase 98 U/L (21-232) Troponin I High Sensitivity < 4.0 ng/L (4-50) L ED Course ED Course Orders Procedure Category Date Status Time Cbc With Differential LAB 10/02/24 Complete 21:44 Testing, LAB 10/02/24 Complete Serum Hcg 21:44 Urinalysis Profile LAB 10/02/24 Complete 21:44 Culture Urine ZARA 10/02/24 In Process 21:44 Ct Abdomen/Pelvis W/O CT 10/02/24 Resulted Contrast 21:44 Ketorolac PHA 10/02/24 Complete Tromethamine 30mg/Ml 22:00 Ondansetron 4mg Inj PHA 10/02/24 Complete (Zofran 4mg Inj) 22:00 Basic Metabolic Panel LAB 10/02/24 Complete 22:09 Blood Cult ZARA 10/02/24 In Process 23:09 0.9%Nacl 1000ml (Ns PHA 10/02/24 Complete 1000ml) 23:30 Lactic Acid LAB 10/02/24 Complete 23:09 Basic Metabolic Panel LAB 10/02/24 Complete 23:09 Ceftriaxone 1g Vial PHA 10/02/24 Complete (Rocephine 1g Inj) 23:30 Acetaminophen 500mg PHA 10/02/24 Complete Tab (Tylenol 500mg T 23:30 0.9%Nacl 1000ml (Ns PHA 10/02/24 Complete 1000ml) 23:30 Acetaminophen 500mg PHA 10/02/24 Complete Tab (Tylenol 500mg T 23:10 Cardiac Panel LAB 10/02/24 Complete 23:26 Morphine 4mg Syg PHA 10/03/24 Complete (Morphine 4mg Syg) 00:30 Ondansetron 4mg Inj PHA 10/03/24 Complete (Zofran 4mg Inj) 00:30 Current Medications Medications (Trade) Dose Ordered Sig/Juan Route PRN Reason Start Time Stop Time Status Last Admin Dose Admin Acetaminophen (TYLenol 500MG TAB) 500 mg STK-MED ONCE .ROUTE 10/02/24 23:10 10/02/24 23:12 DC Acetaminophen (TYLenol 500MG TAB) 1,000 mg ONCE ONCE PO 10/02/24 23:30 10/02/24 23:31 DC 10/02/24 23:11 Ceftriaxone Sodium (ROCEphine 1G INJ) 1 gm ONCE ONCE IVPB 10/02/24 23:30 10/02/24 23:31 DC 10/02/24 23:11 Ketorolac Tromethamine (toRADol) 30 mg ONCE ONCE IVP 10/02/24 22:00 10/02/24 22:01 DC 10/02/24 22:04 Morphine Sulfate (morPHINE 4MG SYG) 4 mg ONCE ONCE IVP 10/03/24 00:30 10/03/24 00:31 DC Ondansetron HCl (zoFRAN 4MG INJ) 4 mg ONCE ONCE IVP 10/02/24 22:00 10/02/24 22:01 DC 10/02/24 22:03 Ondansetron HCl (zoFRAN 4MG INJ) 4 mg ONCE ONCE IVP 10/03/24 00:30 10/03/24 00:31 DC 10/03/24 00:28 Sodium Chloride 2,097 ml @ 699 mls/hr ONCE ONCE IV 10/02/24 23:30 10/03/24 02:14 DC 10/02/24 23:11 Sodium Chloride 2,097 ml @ 699 mls/hr ONCE ONCE IV 10/02/24 23:30 10/03/24 02:14 DC Vital Signs Date Time Temp Pulse Resp B/P (MAP) Pulse Ox O2 Delivery O2 Flow Rate FiO2 10/03/24 01:29 98.8 113 18 106/64 97 Room Air* 0 10/02/24 23:54 129 18 115/74 97 Room Air* 0 21 10/02/24 23:47 140 20 115/74 99 Room Air* 0 21 10/02/24 23:13 102.6 162 18 90/48 98 Room Air* 0 10/02/24 23:11 102.6 10/02/24 21:57 111 17 130/84 99 Room Air* 0 21 10/02/24 21:35 99.5 110 20 124/87 100 Room Air Medical Decision Making MDM ddx: Sepsis versus UTI versus obstructive kidney stone Interpretation of diagnostic significance being by myself who was otherwise stated Interpretation: Patient has UA that was positive for infection. Patient has a obstructive kidney stone of 12 mm on right. Patient's kidney function empiric patient is now hypotensive and febrile. Patient is be criteria for sepsis. Patient given IV antibiotics, IV fluids, tissue perfusion performed. Patient's blood pressure improved Re-evaluation: Patient remains acutely weak. Transferred initiated. Updated patient on transfer status. Patient agrees to proceed transfer his [facility] to ed. updated patient on transfer status. Imbalance and answered all questions prior to transfer DX & DISP Disposition: Transfer Departure Impression: Primary Impression: Severe sepsis Additional Impressions: UTI (urinary tract infection), Nephrolithiasis Condition: Stable Referrals: RADHIKA THOMAS DO (PCP) Time of Disposition: 02:11 CHEMA OSPINA DO Oct 03, 2024 02:21
== END 2024-10-03 02:11 | disposition short-term general hospital (02) ==
LOC: EDH 21:33
DX: N39.0 Urinary tract infection, site not specified (principal); N20.0 Calculus of kidney; R65.20 Severe sepsis without septic shock; F41.9 Anxiety disorder, unspecified; Z79.899 Other long term (current) drug therapy
CPT/HCPCS: 99285; 74176; 96365; 96375; 82550; 84484; 80048 ×2; 84703; 85025; 87040 ×2; 87086 ×3; 87186 ×2; 83605; 81001; 36415; 96376; J0696; J2405 ×2; J1885; J2270